=== PATIENT | female | born 1975 | race Caucasian/White ===

== ENCOUNTER → 2017-09-20 | Day surgery (SDC) | payer OTHER ==
[~2017-09-20] MED LIST: *MEPERIDINE 25 MG INJ VIAL PERIprocedural Use ONLY ONE; *morphine SULFATE 4 MG/ML PERIprocedure ONLY ONE; ACETAMINOPHEN 1000 MG/100 ML 100 ML IV ONE; ACETAMINOPHEN/HYDROcodone 325 MG/7.5 MG TAB PO PRN; BUPIVACAINE/EPINEPHRINE 0.25% 50 ML VIAL ONE; CHLORHEXIDINE GLUCONATE 2 % 1 PACK (2 CLOTHS) TOPICAL PRN; CHLORHEXIDINE GLUCONATE 4% SOLN 120 ML BTL TOPICAL SCH; DEXAMETHASONE SOD PHOS 4 MG/ML VIAL IV ONE; DO NOT ADM ANY ANTICOAGULANT DRUGS PRN; GENTAMICIN SULFATE 80 MG/2 ML VIAL ONE; HYDR-3583 PO; HYDROmorphone HCL PF 2 MG/ML VIAL ONE; LACTATED RINGER'S 1000 ML IV PRN; LIDOCAINE HCL 1% PF 5 ML SYRINGE OTHER ONE; METOPROLOL TARTRATE 25 MG TAB PO PRN; MIDAZOLAM HCL 2 MG/2 ML VIAL ONE; MORPHINE SULFATE 4 MG/ML INJ IV PUSH PRN; ONDANSETRON HCL 4 MG/2 ML VIAL IV ONE; ONDANSETRON HCL 4 MG/2 ML VIAL IVP PRN; POVIDONE IODINE 5% (ANTISEPSIS KIT) 4 APPLICATIONS EACH NARE PRN; PROPOFOL 200 MG/20 ML AMP IV ONE; Post-op Orders (for Pharmacy) XX ONE; SODIUM CHLORID 0.9% 500 ML IV PRN; VANCOMYCIN 1000 MG/NS 250 ML (for <70 kg) IV SCH; ZOFR4TAB PO; ceFAZolin 2 GM PREMIX 50 ML IV SCH; ceFAZolin INJ 1,000 MG VIAL IV ONE
--- NOTE | 2017-09-20 07:45 | PD.OP ---
cc: Mariano Luo MD Operative Report Date of Surgery: Sep 20, 2017 Preoperative Diagnosis: Displaced left distal fibular fracture, deltoid ligament disruption Postoperative Diagnosis: Procedure: Open reduction internal fixation left distal fibula, stress exam under fluoroscopy Surgeon: Mariano Luo Tip Cementer(s): FARAZ Peterson PA-C The surgical procedure was assisted by my physician nurse assistant. My P.A. presence was necessary throughout this case for the manipulation and positioning of the surgical extremity. My P.A. was assisting me throughout the duration of this procedure. The skill set of a physician nurse assistant was medically necessary to complete this procedure. During the surgical case the lead technical architect was working at the back table and the physician nurse assistant was directly assisting me. Operation and Findings: Implants used : Synthes Plan of activity: Nonweightbearing 6 weeks. Splint 2 weeks, short leg cast 2 weeks, then fracture boot. Patient was seen and evaluated preoperatively and found to have a displaced left ankle fracture. Informed consent was obtained after a detailed discussion of risk and benefits of surgery. The operative site was marked. Patient was brought to the OR, placed on the OR table, and given IV sedation and general endotracheal anesthesia. IV antibiotics were given preoperatively. A timeout procedure was performed. The operative leg was prepped with alcohol followed by Hibiclens and draped in the usual sterile fashion. Attention was turned towards the distal fibula. A four-inch incision was made over the distal fibula. The subcutaneous tissue was dissected with Bovie. The fracture site was visualized. The fracture site was cleaned with curets. The fracture was now reduced. The fracture keyed into anatomic alignment. K-wires were used to h old provisional fixation. A lag screw was placed to compress fracture. A plate was selected and contoured to fit the distal fibula. The plate was provisionally held to bone with K-wires. 3.5 cortical screws were used to compress the plate to bone. Multiple screws were placed above and below the fracture. Next, attention was turned to the syndesmosis. The syndesmosis was stressed. There was no widening of the syndesmosis with external rotation of the ankle. Incisions were thoroughly irrigated. The subcutaneous tissue was closed with 3- 0 Vicryl and the skin was closed with 3-0 nylon. Sterile dressings were applied. A well molded well-padded splint was applied. The patient was transferred to Recovery in stable condition. Needle and sponge counts were correct. Mariano Luo MD Sep 20, 2017 07:45
[2017-09-20 11:45] VITALS: BP 122/77; PULSE 77; RESP 18; TEMP 97.2; O2SAT 95
--- NOTE | 2017-09-20 15:27 | RADRPT ---
EXAM DATE/TIME: 09/20/2017 07:21 [facility] COMPARISON: No previous studies available for comparison. INDICATIONS : Left tibia/fibula open reduction internal fixation. MEDICAL HISTORY : None. SURGICAL HISTORY : None. ENCOUNTER: Initial ACUITY: 1 day PAIN SCORE: Non-responsive. LOCATION: Left tibia/fibula FINDINGS: Anatomic alignment across the fracture distal fibula with plate and screws.. CONCLUSION: Anatomic alignment. Jame Garcia MD FACR on September 20, 2017 at 15:25 Board Certified Radiologist. This report was verified electronically.
--- NOTE | 2017-09-21 23:07 | EKG ---
Date Performed: 09/20/2017 Time Performed: 06:23:23 PTAGE: 42 years EKG: Sinus rhythm NONSPECIFIC T-WAVE ABNORMALITY BORDERLINE ECG NO PREVIOUS TRACING DOCTOR: Mauri Neumann Interpretating Date/Time 09/21/2017 23:06:31
== END | disposition home or self-care (01) ==
LOC: HSDC 05:18
PROVIDERS: ATTEND Orthopaedic Surgery Orthopaedic Trauma
DX: S82.832A Other fracture of upper and lower end of left fibula, initial encounter for closed fracture (principal); S93.422A Sprain of deltoid ligament of left ankle, initial encounter; R94.31 Abnormal electrocardiogram [ECG] [EKG]; Y93.23 Activity, snow (alpine) (downhill) skiing, snowboarding, sledding, tobogganing and snow tubing
CPT/HCPCS: 01480; 27792; 73590; 76000; 93005; 97161; C1713; G8987; G8988; J0131; J0690; J1100; J1170; J1580; J2175; J2250; J2270; J2405; J3010; J3370; J7050; J7120